=== PATIENT | male | born 1990 | race Caucasian/White ===

== ENCOUNTER 2021-11-08 14:02 | Emergency (ER) | payer SELFPAY ==
[~2021-11-08] VITALS: Ht 167.6 cm; Wt 90.0 kg
[2021-11-08 14:20] VITALS: BP 160/83
[2021-11-08] MEDS ORDERED: PREDNISONE 20MG TABLET PO ONE (14:45)
[2021-11-08] MEDS ORDERED: IPRATROPIUM/ALBUTEROL 0.5-3(2.5)MG/3ML NEB HHN ONE (14:45)
[2021-11-08] MEDS ORDERED: P20 MT (15:53)
[2021-11-08] MEDS ORDERED: ALBU6.7H15 INH (15:53)
== END 2021-11-08 16:08 | disposition home or self-care (01) ==
LOC: ER 14:02
DX: R06.2 Wheezing (principal); Z20.822 Contact with and (suspected) exposure to COVID-19
CPT/HCPCS: 71045; 87426; 94640; 99284; C9803; J7512; Z7610